=== PATIENT | male | born 1950 | race African-American/Black ===

== ENCOUNTER 2017-08-31 10:15 | Emergency (ER) | payer MEDICARE, SELFPAY ==
[2017-08-31 10:21] VITALS: BP 148/105; PULSE 84; RESP 18; TEMP 36.4; O2SAT 96; BMI 21.2
--- NOTE | 2017-08-31 10:32 | HMH.EDGENADL ---
ED Disposition Clinical Impression: Dehydration, Hyperthyroidism, Viral syndrome, Hyponatremia Disposition: Home, Self-Care Condition on Discharge: Good Additional Instructions: Please drink plenty of fluids. Please switch the Synthroid dose from 88 mcg to 50 mcg daily (Rx attached). Please follow-up with Dr. Martinez in the next [address] scan of the chest showing a right upper lung cavity, requiring repeat CT scan within 6 months (copy of less CT scan chest dated 09/16/16 given to you). If not better return to this emergency room promptly or follow up with Dr. Martinez at your earliest convenience. Prescriptions: Amoxicillin/Potassium Clav [Augmentin 875-125 Tablet] 1 tab PO Q12H #20 tab Levothyroxine Sodium [Synthroid 50mcg (0.05mg) tab] 50 mcg PO DAILY #30 tab Referrals: Dileep Martinez MD [Primary Care Provider] - Time of Disposition: 14:13 - Critical Care Critical Care Time: No Attestation: On , the high probability of a clinically significant, sudden or life threatening deterioration of the following system(s) required my full and direct attention, intervention and personal management. The time I documented below is in addition to time spent performing reported procedures but includes the following listed in this critical care notation. Medical Decision Making Vital Signs: 08/31/17 10:21 08/31/17 14:00 08/31/17 14:33 Temperature 97.6 F 98.0 F 98.1 F Temperature Source Oral Oral Oral Pulse Rate 72 Pulse Rate [Right Brachial] 84 72 Respiratory Rate 18 18 18 Blood Pressure 142/79 Blood Pressure [Right Arm] 148/105 132/85 Blood Pressure Mean [Right Arm] 119 100 Blood Pressure Source Automatic Cuff Blood Pressure Source [Right Arm] Automatic Cuff Automatic Cuff Blood Pressure Position Supine Blood Pressure Position [Right Arm] Sitting Sitting 02 Sat by Pulse Oximetry 96 97 Oxygen Delivery Method Room Air Room Air - Lab Data Lab results reviewed: Yes: I reviewed the patient's lab results. Lab Results 08/31/17 10:35: WBC 5.8, RBC 4.59 L, Hgb 14.0 L, Hct 41.1 L, MCV 89.7, MCH 30.6, MCHC 34.1, RDW 13.4, Plt Count 93 L, MPV 8.9, Neut % (Auto) 73.9, Lymph % (Auto) 18.7, Jennings % (Auto) 6.7, Eos % (Auto) 0.3, Baso % (Auto) 0.3, Neut # (Auto) 4.3, Lymph # (Auto) 1.1, Jennings # (Auto) 0.4, Eos # (Auto) 0.0, Baso # (Auto) 0.0 08/31/17 10:35: Sodium 127 L, Potassium 3.8, Chloride 95 L, Carbon Dioxide 25, Anion Gap 10.8, BUN 16, Creatinine 1.31 H, Estimated Creat Clear 59, Estimated GFR 54 L, Est GFR ( Amer) 66, Glucose 136 H, Calcium 7.9 L, Total Bilirubin 0.8, AST 18, ALT 14, Alkaline Phosphatase 80, Total Protein 7.7, Albumin 3.3 L, Globulin 4.4 H, Albumin/Globulin Ratio 0.8 L 08/31/17 10:35: Influenza Type A Ag Negative, Influenza Type B Ag Negative 08/31/17 10:35: Group A Strep Rapid Negative 08/31/17 10:35: TSH 0.15 L 08/31/17 11:40: Chlamy pneumoniae PCR Not detected, Adenovirus (PCR) Not detected, B.parapertussis DNA PCR Not detected, Coronavirus OC43 (PCR) Not detected, Coronavirus HKU1 (PCR) Not detected, Coronavirus 229E (PCR) Not detected, Coronavirus NL63 (PCR) Not detected, Human Metapneumovir PCR Not detected, Influenza A (H1) PCR Not detected, Influ A (H1N1/09) PCR Not detected, Influenza A (H3) PCR Not detected, Influenza Type A (PCR) Not detected, Influenza Type B (PCR) Not detected, M. pneumoniae (PCR) Not detected, Parainfluenza 1 (PCR) Not detected, Parainfluenza 2 (PCR) Not detected, Parainfluenza 3 (PCR) Not detected, Parainfluenza 4 (PCR) Not detected, RSV (PCR) Not detected, Entero/Rhino (PCR) Not detected 08/31/17 11:45: Urine Color Yellow, Urine Appearance Clear, Urine pH 6.5, Ur Specific [place] < 1.005 L, Urine Protein Negative, Urine Glucose (UA) Negative, Urine Ketones Negative, Urine Blood Trace, Urine Nitrate Negative, Urine Bilirubin Negative, Urine Urobilinogen 0.2, Ur Leukocyte Esterase Negative, Urine RBC Occasional, Urine WBC 3-5, Ur Squamous Epith Cells 3-5, Urine Bact
--- NOTE | 2017-08-31 10:37 | XR_ITS ---
XR chest 2V HISTORY: ITS.REASON: cough ORDERING PHYSICIAN: Troy Aguilar MD PATIENT AGE: 67 years COMPARISON: 2-17 FINDINGS: The cardiomediastinal silhouette and pulmonary vascularity are within normal limits. Right apical pleural thickening with fibrosis in with cavitation once again noted not significantly changed. No lobar consolidation or collapse.. No acute bony abnormalities. IMPRESSION: 1. No change right apical fibrosis with cavitation. 2. No acute findings
[2017-08-31 10:52] LABS: Strep Scrn Group A (Rapid) Negative (Negative)
[2017-08-31 10:54] LABS: Basophils % 0.3 % (0.1-2.0); Eosinophils % 0.3 % (0.1-12.0); Hematocrit 41.1 % (42.0-52.0); Lymphocytes # 1.1 K/mm3 (0.7-4.5); Lymphocytes % 18.7 K/mm3 (10-50); Mean Corpuscular HGB Conc 34.1 g/dL (31.8-35.4); Mean Corpuscular Hemoglobin 30.6 pg (27.0-31.2); Mean Corpuscular Volume 89.7 fl (80-94); Mean Platelet Volume 8.9 fl (7.4-10.4); Monocytes # 0.4 K/mm3 (0.1-1.0); Monocytes % 6.7 % (1.7-9.3); Neutrophils # 4.3 K/mm3 (1.8-7.8); Neutrophils % 73.9 % (37.0-80.0); Platelet Count 93 K/mm3 (142-424); Red Blood Count 4.59 M/mm3 (4.60-6.20); Red Cell Distribution Width 13.4 % (11.5-17.5); White Blood Count 5.8 K/mm3 (4.8-10.8)
[2017-08-31 11:07] LABS: Alanine Aminotransferase 14 U/L (12-78); Albumin Level 3.3 gm/dL (3.4-5.0); Albumin/Globulin Ratio 0.8 (1.1-1.8); Alkaline Phosphatase 80 U/L (46-116); Anion Gap 10.8 mEq/L (5-15); Aspartate Amino Transferase 18 U/L (15-37); Bilirubin,Total 0.8 mg/dL (0.2-1.0); Blood Urea Nitrogen 16 mg/dL (7-18); Calcium 7.9 mg/dL (8.5-10.1); Carbon Dioxide 25 mmol/L (21.0-32.0); Chloride 95 mmol/L (98-107); Creatinine Clearance Estimated 59 mL/min (0-300); Creatinine,Serum 1.31 mg/dL (0.70-1.30); Estimated Glomerular Filt Rate 54 ml/min (>60); GFR (African American) 66 ML/MIN (>60); Globulin 4.4 gm/dl (1.3-3.2); Glucose 136 mg/dL (74-106); Potassium 3.8 mmoL/L (3.5-5.1); Sodium 127 mmol/L (136-145); Total Protein,Serum 7.7 gm/dL (6.4-8.2)
[2017-08-31 11:09] LABS: Thyroid Stimulating Hormone 0.15 uIU/ml (0.358-3.740)
[2017-08-31 11:43] LABS: Adenovirus,PCR Not Detected (NotDetected); Bordetella Pertussis Not Detected (NotDetected); Chlamydophila Pneumoniae, PCR Not Detected (NotDetected); Coronavirus 229E Not Detected (NotDetected); Coronavirus NL63 Not Detected (NotDetected); Coronavirus OC43 Not Detected (NotDetected); Coronovirus HKU1,PCR Not Detected (NotDetected); Human Metapneumovirus Not Detected (NotDetected); Influenza A, PCR Not Detected (NotDetected); Influenza AH1, 2009 Not Detected (NotDetected); Influenza AH1, PCR Not Detected (NotDetected); Influenza AH3,PCR Not Detected (NotDetected); Influenza B, PCR Not Detected (NotDetected); Mycoplasma Pneumoniae, PCR Not Detected (NotDected); Parainfluenza 1, PCR Not Detected (NotDetected); Parainfluenza 2, PCR Not Detected (NotDetected); Parainfluenza 3, PCR Not Detected (NotDetected); Parainfluenza 4, PCR Not Detected (NotDetected); Respiratory Syncytial Virus Not Detected (NotDetected); Rhinovirus/Enterovirus Not Detected (NotDetected)
[2017-08-31 11:54] LABS: Microscopic, Urine URINE MICROSCOPIC (MICROSCOPIC)
[2017-08-31 12:01] LABS: Appearance,Urine Clear (Clear); Color,Urine Yellow (Yellow); PH,Urine 6.5 (5.0-8.5); Protein,Urine Negative (Negative); Specific Gravity, Urine < 1.005 (1.005-1.030)
[2017-08-31 12:02] LABS: Bilirubin,Urine Negative (Negative); Blood, Urine Trace (Negative); Glucose,Urine (UA) Negative (Negative); Ketones,Urine Negative (Negative); Leukocyte Esterase,Urine Negative (Negative); Nitrate,Urine Negative (Negative); Urobilinogen,Urine 0.2 EU/dl (0.2)
[2017-08-31 12:08] LABS: Bacteria,Urine Trace /lpf; RBC,Urine Occasional #/hpf (0-3)
[2017-08-31 14:00] VITALS: BP 132/85; PULSE 72; RESP 18; TEMP 36.7; O2SAT 97
[2017-08-31 14:33] VITALS: BP 142/79; PULSE 72; RESP 18; TEMP 36.7; O2SAT 99
== END 2017-08-31 14:33 | disposition home or self-care (01) ==
LOC: ER 10:47
PROVIDERS: Emergency Provider Emergency Medicine; Family Provider Internal Medicine Adolescent Medicine; PCP Internal Medicine Adolescent Medicine
DX: E87.1 Hypo-osmolality and hyponatremia (principal); E05.90 Thyrotoxicosis, unspecified without thyrotoxic crisis or storm; B34.9 Viral infection, unspecified; Z79.899 Other long term (current) drug therapy; I10 Essential (primary) hypertension
CPT/HCPCS: 71046; 80053; 81001; 84443; 85025; 87275; 87276; 87430; 87486; 87581; 87633; 87798; 96365; 96367; 99283

== ENCOUNTER → 2018-10-20 14:43 | Outpatient (CLI) | payer MEDICARE, SELFPAY ==
--- NOTE | 2018-10-20 | CA_ITS ---
PROCEDURE: 2-D M-mode and color Doppler study INDICATIONS FOR THE TEST: Chest pain COPD Heart Murmur Tobacco Smoking+ Palpitations Fatigue Syncope Edema Hypertension+Diabetes Mellitus Rheumatic Fever SOB FLORIAN Obesity Hyperlipidemia+ Family History HD Additional History hx of [place], CVA, known apical thrombus x 5 years PATIENT INFORMATION HEIGHT: 75 WEIGHT: 155 GENDER: Male B/P: 158/96 2-D/M-MODE INTERPRETATION: 2-D MEASUREMENTS OBSERVED VALUES IN CMS Right Ventricular Dimension (RVDd) 1.5 Interventricular Septum (Thickness)(IVsd) 0.7 Left Ventricular Internal Dimensions(LVIDd) 5.1 Left Ventricular Posterior Wall (Thickness)(LVPWd) 0.7 Aortic Root 3.1 Aortic Cusp Separation 2.0 Left Atrial Dimensions (LAD) 2.3 2D 1. Left atrium is mildly enlarged, left ventricle is mildly dilated, severely reduced left ventricular systolic function, visually estimated ejection fraction of 25%, there is marked hypo to akinesis involving the mid to distal septum, anterior, anteroapical, apex and inferoapical wall. There is large nonmobile apical thrombus seen. 2. The right atrium and right ventricle are normal size and contractility. 3. The aortic valve is thickened and calcified leaflet continue to display good mobility. 4. The mitral and tricuspid valve leaflets are minimally thickened. 5. The pulmonic valve is poorly visualized. 6. No significant pericardial effusion noted. DOPPLER INTERROGATION: Doppler interrogation of the aortic, mitral and tricuspid valve is presence of moderate mitral and mild tricuspid regurgitation, tricuspid regurgitation jet velocity is inadequate for calculation of the right ventricular systolic pressure, diastolic parameters are inconclusive. CONCLUSION: 1. Dilated left ventricle, severely reduced left ventricular systolic function, visually estimated to fraction of 20-25% with multiple segmental wall motion abnormality described above, there is large apical thrombus seen. 2. Moderate mitral and mild tricuspid regurgitation 3. No significant pericardial effusion noted.
== END ==
PROVIDERS: PCP Internal Medicine Adolescent Medicine; Visit Provider Internal Medicine Cardiovascular Disease
DX: I10 Essential (primary) hypertension (principal); I25.10 Atherosclerotic heart disease of native coronary artery without angina pectoris
CPT/HCPCS: 93306

== ENCOUNTER → 2018-11-15 10:15 | Outpatient (CLI) | payer MEDICARE, SELFPAY ==
[2018-11-15 10:43] LABS: Hematocrit 42.5 % (42.0-52.0); Hemoglobin 14.1 g/dL (14.1-18.0)
== END ==
PROVIDERS: Visit Provider Surgery
DX: A04.8 Other specified bacterial intestinal infections (principal)
CPT/HCPCS: 36415; 85014; 85018

== ENCOUNTER → 2019-01-30 13:52 | Outpatient (CLI) | payer MEDICARE, SELFPAY ==
[2019-02-02 17:10] LABS: H. pylori Stool Ag, EIA Negative (Negative)
== END ==
PROVIDERS: Visit Provider Surgery
DX: A04.8 Other specified bacterial intestinal infections (principal)
CPT/HCPCS: 87338

== ENCOUNTER → 2020-05-05 07:55 | Outpatient (CLI) | payer MEDICARE, SELFPAY ==
--- NOTE | 2020-05-05 08:18 | CT_ITS ---
PROCEDURE: CT LUNG SCREENING CLINICAL INDICATION: CURRENT SMOKER Year smoking history, asymptomatic for lung cancer COMPARISON: CT CHWO CT CHEST W/O CONTRAST from 02/16/2013 CT CTAC CTA-CHEST from 09/16/2016 TECHNIQUE: The exam was performed on a GE Light Speed [address] scanner using 2.90 mGy CTDI. A low dose helical CT CHEST was performed on a multi-detector scanner. All CT scans at the facility use one or more dose reduction, viz: automated exposure control, ma/kV adjustment per patient size (including targeted exams where dose is matched to indication, i.e. head), or iterative reconstruction technique. The LDCT was performed in a facility that meets the criteria for the screening program. Data regarding this exam was submitted to ACR which is an approved registry. The order for this exam indicates that it came as a result of a lung cancer screening counseling shard decision-making visit that included all the elements required of such a visit including smoking cessation. The radiologist interpreting this exam meets the CMS criteria for the LDCT lung cancer screening program. The exam is reported using the Lung-RADS classification scale and reported to the ACR registry. NOTE: This study was performed for the specific purposes of lung cancer screening and is not an alternative to diagnostic chest CT. RADIATION DOSE: CTDI vol(CT dose Index-volume) = 2.90mG DLP (Dose Length Product) = 128.20 mGcm FINDINGS: Artifact is present from a cardiac pacemaker implanted in the left chest. There is diffuse centrilobular and panlobular emphysematous changes with pulmonary fibrotic changes. There is an apical cavity on the right with pleural thickening. The cavity is decreased in size compared to 02/16/2013 measuring 3 cm in with previously measuring 6 cm in with. There is bronchiectasis in the right apex. Scattered nodular opacities are present in the right apex as well which could be due to scarring. These are parenchymal and subpleural. Faint nodular opacities are present in the right upper lobe which are nonspecific measuring up to 4 mm. Many of these were present on the previous exam somewhat difficult to evaluate due to the underlying scarring. 3 mm nodule right lower lobe medially unchanged. 4 mm right middle lobe nodule unchanged. There is some irregularity in the anterior aspect of the right upper lobe medially which is felt to be due to scarring. There is some scarring in the left lower lobe as well. There are few small nodules in the left upper lobe laterally the largest at approximately 4 mm. These are probably unchanged considering difference in technique. OTHER FINDINGS: Coronary artery calcifications. Pericardial thickening. IMPRESSION: Lung-RADS Category lung rads category 3 probably benign. Recommend six-month diagnostic CT without and with contrast. Cyst severe centrilobular emphysema with right apical cavity and pleural parenchymal thickening with bronchiectasis. Follow-up: [address] Chest without and with contrast. Dictated by: Lalit Momin MD 05/19/2020 09:56 Lalit Momin MD in [place] 05/19/2020 09:56
== END ==
PROVIDERS: PCP Internal Medicine Adolescent Medicine; Visit Provider Internal Medicine Adolescent Medicine
DX: Z87.891 Personal history of nicotine dependence (principal); Z12.2 Encounter for screening for malignant neoplasm of respiratory organs

== ENCOUNTER → 2020-05-08 10:47 | Outpatient (CLI) | payer MEDICARE, SELFPAY ==
--- NOTE | 2020-05-08 10:51 | CA_ITS ---
APPROVED REPORT EXAM: Comprehensive 2D, Doppler, and color-flow Echocardiogram Bar Porter: Alexandra Knapp CRT Ht: 6 ft 3 in Wt: 155lbs BSA: 1.97 BP: 150/90 mmHg Indications: Hyperlipidemia, Hypertension/HDD, old NV, CVA, smoker, known apical thrombus x 6 yrs Left Ventricle Left atrium is mildly enlarged, left ventricle is mildly dilated, mild concentric left ventricular hypertrophy, visually estimated ejection fraction 25%, there is marked hypokinesis involving mid to distal septum, anterior, anterior apical and apical wall. Grade 1 diastolic dysfunction seen without tissue Doppler evidence of raise left atrial pressure. Right Ventricle Right atrium and right ventricle are normal size and contractility, there is an AICD lead seen in the right ventricle. Aortic Valve Aortic valve is minimally thickened and fibrosed. There is no aortic stenosis or aortic insufficiency. Mitral Valve Mitral valve leaflets are minimally thickened, there is mild mitral regurgitation. Tricuspid Valve Tricuspid valve is grossly normal, there is mild tricuspid regurgitation, tricuspid regurgitation jet velocity is inadequate for calculation of the right ventricular systolic pressure. Pulmonic Valve Pulmonic valve is poorly visualized. Great Vessels Aortic root is normal size. Pericardium No significant pericardial effusion noted. Conclusion 1. Mildly enlarged left atrium, mildly dilated left ventricle, visually estimated ejection fraction 25 to 30% with multiple segmental wall motion abnormality described above, grade 1 diastolic dysfunction. Without tissue Doppler evidence of raise left atrial pressure. 2. Mild mitral and tricuspid regurgitation. 3. No significant pericardial effusion noted. Electronically signed by : Erick Mustafa, 05/08/2020 14:07:52
== END ==
PROVIDERS: PCP Internal Medicine Adolescent Medicine; Visit Provider Internal Medicine Cardiovascular Disease
DX: I25.10 Atherosclerotic heart disease of native coronary artery without angina pectoris (principal); I48.91 Unspecified atrial fibrillation; I50.22 Chronic systolic (congestive) heart failure; I10 Essential (primary) hypertension
CPT/HCPCS: 93306

== ENCOUNTER 2020-08-23 09:08 | Emergency (ER) | payer MEDICARE, SELFPAY ==
[2020-08-23 09:56] VITALS: BP 167/91; PULSE 81; RESP 19; TEMP 36.6; O2SAT 98; BMI 20.7
--- NOTE | 2020-08-23 10:03 | HMH.EDUTC ---
[facility] [place] Clinical Impression: Exposure to COVID-19 virus Disposition: Home, Self-Care Condition on Discharge: Good Instructions: DI for COVID-19 (Suspected or Confirmed ), COVID-19: Testing and Tracing, Preventing the Spread of Coronavirus Discharge Instructions Additional Instructions: *Monitor Temp, Over the counter Motrin or Tylenol as directed/as needed Tylenol every 4 hours and Motrin every 6 hours (as long as your family doctor has told you that you can take it) for fever or pain. and straight to ER if unable to lower temp less than 101.0 after medication given You were tested for today for COVID19 your test result should be back in the next 24-48 hours, you may call to the [facility] to see if your test results are back in the next 48 hours [phone] [facility] hours are 9am-9pm You was given a handout with instructions for Self Quarantine and Self isolation for while you wait on test results and what to do if they are positive If you are positive the Health Dept will be contacting you also Referrals: Dileep Martinez MD [Primary Care Provider] - As needed Time of Disposition: 10:10 Medical Decision Making - Jacinto Inquiry Pt receiving controlled substance: No Jacinto was queried for this patient: No Vital Signs: 08/23/20 09:56 Temperature 97.8 F Temperature Source Oral Pulse Rate [Right Brachial] 81 Respiratory Rate 19 Blood Pressure [Right Arm] 167/91 H Blood Pressure Mean [Right Arm] 116 Blood Pressure Source [Right Arm] Automatic Cuff Blood Pressure Position [Right Arm] Sitting 02 Sat by Pulse Oximetry 98 Oxygen Delivery Method Room Air Orders (Tests/Meds): ORDERS Category Date Time Status Covid-19 Nasal PCR ([facility]) Routine Lab 08/23/20 09:21 Received [facility] [place] HPI - General Stated complaint: covid test Time Seen by Provider: 08/23/20 10:03 Mode of Arrival: Ambulatory Source of Information: Patient Limitations: No Limitations Description of Symptoms (Recalled from Triage Doc. by RN): COVID TEST D/T EXPOSURE; DENIES SYMPTOMS HEENT Symptoms (Recalled from RN notes): No Resp Symptoms (Recalled from RN notes): No Skin Symptoms (Recalled from RN notes): No MS Symptoms (Recalled from RN notes): No Functional Status (Recalled from RN notes): WNL - History of Present Illness Provider Complaint: Patient states that he was recently around someone that was positive for COVID state that he is not having any symptoms but wanted to get tested - Related Data Home Medications Medication Instructions Recorded Confirmed Coreg 12.5mg Tablet 1 tab PO DAILY 08/31/17 04/11/19 Nitroglycerin [Nitroglycerin 0 gm SL NEEDED PRN 08/31/17 04/11/19 0.4mg/Dose Reyno 4.9gm] Omeprazole [Omeprazole 20mg 20 mg PO BID 08/31/17 04/11/19 Capsule] Pravastatin Sodium [Pravachol] 40 mg PO BID 08/31/17 04/11/19 lisinopriL [Lisinopril 5mg Tablet] 5 mg PO DAILY 08/31/17 04/11/19 raNITIdine HCl [Zantac] 150 mg PO BID 08/31/17 04/11/19 Levothyroxine Sodium [Synthroid 50 mcg PO DAILY 08/15/18 04/11/19 50mcg (0.05mg) tab] apixaban 5 mg tablet 5 mg PO BID 04/11/19 04/11/19 Allergies Allergy/AdvReac Type Severity Reaction Status Date / Time No Known Allergies Allergy Verified 04/11/19 09:28 - Worker's Comp Is this a Worker's Comp case?: No [facility] History - Hepatitis A Screen Drug use history?: No High risk sexual behaviors?: No History of sexually transmitted infection?: No Currently employed?: No Childcare worker?: No Do you have indoor plumbing?: Yes Do you have electricity?: Yes Attestation statement:: This patient has been screened for Hepatitis A risk factors. I have reviewed the patient's past medical history: Yes Medical History: Reports:: Coronary Artery Disease, Cerebrovascular Accident, Gastroesophageal Reflux Disease(GERD), Hyperlipidemia, Hypertension, Myocardial Infarction Denies:: Diabetes Mellitus Type 1, Diabetes Mellitus Type 2, Internal Pacemaker, Lung Disease, Seizures
[2020-08-23 10:18] VITALS: BP 167/91; PULSE 81; RESP 19; TEMP 36.6; O2SAT 98
--- NOTE | 2020-08-23 15:32 | PC.NURSE ---
PT NOTIFIED OF POSITIVE COVID RESULT
== END 2020-08-23 10:20 | disposition home or self-care (01) ==
PROVIDERS: Emergency Provider Nurse Practitioner; PCP Internal Medicine Adolescent Medicine
DX: U07.1 COVID-19 (principal); E03.9 Hypothyroidism, unspecified; E78.5 Hyperlipidemia, unspecified; I10 Essential (primary) hypertension; I25.10 Atherosclerotic heart disease of native coronary artery without angina pectoris; I25.2 Old myocardial infarction; K21.9 Gastro-esophageal reflux disease without esophagitis
CPT/HCPCS: G0463; 99202; U0003

== ENCOUNTER → 2020-09-10 10:30 | Outpatient (CLI) | payer MEDICARE, SELFPAY ==
[2020-09-10 10:53] LABS: Basophils % 0.8 % (0.1-2.0); Eosinophils # 0.1 K/mm3 (0.0-0.4); Eosinophils % 1.5 % (0.1-12.0); Hematocrit 47.4 % (42.0-52.0); Hemoglobin 15.2 g/dL (14.1-18.0); Lymphocytes # 0.9 K/mm3 (0.7-4.5); Lymphocytes % 23.8 % (10-50); Mean Corpuscular HGB Conc 32.1 g/dL (31.8-35.4); Mean Corpuscular Hemoglobin 31.1 pg (27.0-31.2); Mean Corpuscular Volume 96.9 fl (80-94); Mean Platelet Volume 8.4 fl (7.4-10.4); Monocytes # 0.3 K/mm3 (0.1-1.0); Monocytes % 7.2 % (1.7-9.3); Neutrophils # 2.5 K/mm3 (1.8-7.8); Neutrophils % 66.6 % (37.0-80.0); Platelet Count 147 K/mm3 (142-424); Red Blood Count 4.89 M/mm3 (4.60-6.20); Red Cell Distribution Width 13.8 % (11.5-17.5); White Blood Count 3.7 K/mm3 (4.8-10.8)
[2020-09-10 11:19] LABS: Alanine Aminotransferase 15 U/L (12-78); Albumin Level 4.7 g/dl (3.5-5.0); Albumin/Globulin Ratio 1.1 (1.1-1.8); Alkaline Phosphatase 82 U/L (38-126); Anion Gap 14.6 mEq/L (5-15); Aspartate Amino Transferase 20 U/L (17-59); Bilirubin,Total 0.7 mg/dl (0.2-1.3); Blood Urea Nitrogen 16 mg/dl (9-20); Calcium 9.8 mg/dl (8.4-10.2); Carbon Dioxide 27 mmol/L (22.0-30.0); Chloride 104 mmol/L (98-107); Cholesterol 122 mg/dl (140-200); Estimated Glomerular Filt Rate 60 ml/min (>60); GFR (African American) 72 ML/MIN (>60); Globulin 4.1 g/dL (1.3-3.2); Glucose 103 mg/dl (74-100); HDL Cholesterol 41 mg/dl (40-60); Potassium 4.6 mmoL/L (3.5-5.1); Sodium 141 mmol/L (136-145); Total Protein,Serum 8.8 g/dl (6.3-8.2); Triglycerides 80 mg/dl (30-150); VLDL Cholesterol 16 mg/dL (0-40)
[2020-09-10 11:30] LABS: Direct LDL Cholesterol 43.55 mg/dL (100-129)
[2020-09-10 11:47] LABS: Thyroid Stimulating Hormone 0.82 uIU/mL (0.465-4.68)
== END ==
PROVIDERS: Visit Provider Internal Medicine Adolescent Medicine
DX: I25.5 Ischemic cardiomyopathy (principal); Z79.899 Other long term (current) drug therapy
CPT/HCPCS: 36415; 80053; 80061; 84443; 85025

== ENCOUNTER → 2020-12-18 12:54 | Outpatient (CLI) | payer MEDICARE, SELFPAY ==
--- NOTE | 2020-12-18 13:10 | CT_ITS ---
PROCEDURE: CT CHEST WO/W CON CLINCAL INDICATION: LUNG NODULE SEEN ON IMAGING STUDY COMPARISON: CT CT LUNG SCREENING from 05/05/2020 TECHNIQUE: IV Contrast: 75ml Isovue 370 Axial images obtained with sagittal and coronal reformats. All CT scans at the facility use one or more dose reduction, viz: automated exposure control, ma/kV adjustment per patient size (including targeted exams where dose is matched to indication, i.e. head), or iterative reconstruction technique. FINDINGS: HEART AND MEDIASTINAL STRUCTURES: No mediastinal or hilar mass or adenopathy. No evidence of aortic aneurysm, dissection, or central pulmonary embolus. There is minimal thickening of the pericardium anteriorly and inferiorly not significantly changed. Artifact is present from cardiac pacemaker device. The right lobe of the thyroid gland is slightly prominent. The left lobe is not readily identified. Has the patient had a prior left thyroidectomy? LUNGS AND PLEURAL SPACES: There are severe centrilobular and paraseptal emphysematous changes with prominent complex right apical pleural thickening with multiple cavities which do not appear significantly changed. Right upper lobe bronchiectasis is present. Numerous small pulmonary nodules are also present in the right upper lobe and do not appear significantly changed. Small cavity is present in the right upper lobe anteriorly with some surrounding fibrotic changes which appear stable there is some scarring in the left lower lobe. There are scattered calcified granulomas. No effusions. BONY STRUCTURES: No acute bony abnormalities apparent. UPPER ABDOMEN: Unremarkable. ADDITIONAL FINDINGS: No other significant abnormalities. IMPRESSION: Overall stable CT appearance of the chest. No change in the right apical pleural thickening with multiple small cavities, right upper lobe bronchiectasis with bronchial thickening, scattered areas of scarring and small right upper lobe pulmonary nodules along with numerous granulomas. Dictated by: Lalit Momin MD 12/19/2020 09:17 Lalit Momin MD in [place] 12/19/2020 09:17
[2020-12-18 13:47] LABS: Blood Urea Nitrogen 16 mg/dl (9-20); Estimated Glomerular Filt Rate 46 ml/min (>60); GFR (African American) 56 ML/MIN (>60)
== END ==
PROVIDERS: PCP Internal Medicine Adolescent Medicine; Visit Provider Internal Medicine Adolescent Medicine
DX: R91.1 Solitary pulmonary nodule (principal)
CPT/HCPCS: 36415; 71270; 82565; 84520; Q9967

== ENCOUNTER → 2021-08-13 14:35 | Outpatient (CLI) | payer MEDICARE, SELFPAY ==
[2021-08-13 15:31] LABS: Eosinophils # 0.2 K/mm3 (0.0-0.4); Eosinophils % 4.3 % (0.1-12.0); Hematocrit 45.5 % (42.0-52.0); Hemoglobin 14.8 g/dL (14.1-18.0); Lymphocytes # 1.4 K/mm3 (0.7-4.5); Lymphocytes % 35.8 % (10-50); Mean Corpuscular HGB Conc 32.5 g/dL (31.8-35.4); Mean Corpuscular Hemoglobin 31.9 pg (27.0-31.2); Mean Corpuscular Volume 98.3 fl (80-94); Mean Platelet Volume 8.9 fl (7.4-10.4); Monocytes # 0.3 K/mm3 (0.1-1.0); Neutrophils # 1.9 K/mm3 (1.8-7.8); Neutrophils % 49.9 % (37.0-80.0); Platelet Count 159 K/mm3 (142-424); Red Blood Count 4.63 M/mm3 (4.60-6.20); Red Cell Distribution Width 14.3 % (11.5-17.5); White Blood Count 3.8 K/mm3 (4.8-10.8)
[2021-08-13 16:02] LABS: Alanine Aminotransferase 10 U/L (12-78); Albumin Level 4.1 g/dl (3.5-5.0); Albumin/Globulin Ratio 1.2 (1.1-1.8); Alkaline Phosphatase 77 U/L (38-126); Anion Gap 13.8 mEq/L (5-15); Aspartate Amino Transferase 17 U/L (17-59); Bilirubin,Total 0.9 mg/dl (0.2-1.3); Blood Urea Nitrogen 20 mg/dl (9-20); Calcium 9.2 mg/dl (8.4-10.2); Carbon Dioxide 27 mmol/L (22.0-30.0); Chloride 103 mmol/L (98-107); Chol/HDL Ratio 2.9 (1-3.5); Cholesterol 110 mg/dl (140-200); Estimated Glomerular Filt Rate 50 ml/min (>60); GFR (African American) 60 ML/MIN (>60); Globulin 3.4 g/dL (1.3-3.2); Glucose 96 mg/dl (74-100); HDL Cholesterol 38 mg/dl (40-60); Magnesium 1.7 mg/dl (1.6-2.3); Potassium 4.8 mmoL/L (3.5-5.1); Sodium 139 mmol/L (136-145); Total Protein,Serum 7.5 g/dl (6.3-8.2); Triglycerides 136 mg/dl (30-150); VLDL Cholesterol 27 mg/dL (0-40)
[2021-08-13 16:13] LABS: Direct LDL Cholesterol 49.25 mg/dL (100-129)
[2021-08-13 16:34] LABS: Thyroid Stimulating Hormone 0.85 uIU/mL (0.465-4.68)
== END ==
PROVIDERS: Visit Provider Internal Medicine Adolescent Medicine
DX: I25.5 Ischemic cardiomyopathy (principal); E78.5 Hyperlipidemia, unspecified; E03.9 Hypothyroidism, unspecified
CPT/HCPCS: 36415; 80053; 80061; 83735; 84443; 85025

== ENCOUNTER → 2022-01-04 12:42 | Outpatient (CLI) | payer MEDICARE, SELFPAY ==
--- NOTE | 2022-01-04 12:46 | CT_ITS ---
FINAL REPORT TECHNIQUE: Thin section axial images were obtained from the lung apices through the upper abdomen without contrast. This study was performed with techniques to keep radiation doses as low as reasonably achievable (ALARA). Individualized dose reduction techniques using automated exposure control or adjustment of mA and/or kV according to the patient's size were employed. CLINICAL HISTORY: Right PULMONARY NODULE COMPARISON: 12/18/2020 FINDINGS: There is a stable, enlarged right thyroid. There is no mediastinal, hilar, or axillary lymphadenopathy. There is no pleural or pericardial effusion. There is severe emphysema which is stable. Again seen, is right apical pleural thickening with bronchiectasis and retraction of the right sonny superiorly. Small subcentimeter right upper lobe nodules are unchanged. There are scattered tiny right lower lobe pulmonary nodules which are also stable. There is a chronic appearing, small right apical pneumothorax which is unchanged. This is best seen on the coronal images. Limited, unenhanced evaluation of the upper abdomen is without acute abnormality. There is no acute osseous abnormality. IMPRESSION: Stable, right upper lung findings with bronchiectasis and a chronic small right apical pneumothorax, possibly a sequela of prior infection. Emphysema. Stable subcentimeter right pulmonary nodules. Reviewed, Interpreted and Dictated by Tiffanie Adrian MD Transcribed by Bharti Corley Authenticated by Tiffanie Adrian MD on 01/04/2022 02:24:36 PM [facility]
== END ==
PROVIDERS: PCP Internal Medicine Adolescent Medicine; Visit Provider Internal Medicine Adolescent Medicine
DX: R91.1 Solitary pulmonary nodule (principal)
CPT/HCPCS: 71250

== ENCOUNTER → 2022-03-02 09:23 | Outpatient (CLI) | payer MEDICARE, SELFPAY | PROVIDERS: PCP Internal Medicine Adolescent Medicine; Visit Provider Internal Medicine Gastroenterology | DX: Z01.812 Encounter for preprocedural laboratory examination (principal); Z20.822 Contact with and (suspected) exposure to COVID-19; Z12.11 Encounter for screening for malignant neoplasm of colon | CPT/HCPCS: C9803; U0003; U0005 ==

== ENCOUNTER 2022-03-04 07:55 | Day surgery (SDC) | payer MEDICARE, SELFPAY ==
[2022-03-01 14:10] VITALS: BMI 21.0
[2022-03-04 08:15] VITALS: BP 190/117; PULSE 83; RESP 18; TEMP 36.3; O2SAT 92
[2022-03-04 08:55] VITALS: O2SAT 92
--- NOTE | 2022-03-04 09:09 | P.PN_ITS ---
[facility] Anesthesia Checklist - Patient Identification Patient Identification: Arm Band - Structural Data Admitted From: Home Planned Operative Procedure/s: colonoscopy Consent for Planned Operative Procedure(s) Verified: Yes Verified Documents: Surgical Consent, History and Physical - NPO Status Verified Time NPO: 00:00 - Additional verifications Anesthesia Reactions: No - Airway Assessment C-Spine Mobility Assessed: Yes (mp2) TMJ Mobility Assessed: Yes Dentition: Poor Dentition - Neurological Assessment Level of Consciousness: Awake, Alert - Anesthesia Plan Anesthesia Risk discussed: Yes Anesthesia Plan: Verified ASA Class: III Anesthesia Type: MAC [facility] History I have reviewed the patient's past medical history: Yes Medical History: Reports:: Coronary Artery Disease, Cerebrovascular Accident, Gastroesophageal Reflux Disease(GERD), Hyperlipidemia, Hypertension, Internal Pacemaker, Myocardial Infarction Denies:: Cancer, Diabetes Mellitus Type 1, Diabetes Mellitus Type 2, Lung Disease, MRSA, Seizures *Have you ever received a pneumonia vaccine?: Yes *Have you received a flu vaccine this season?: Yes Other Medical History: Reports: Hypothyroidism Anesthesia experience/problems:: nac Laterality Cases: Right: Arthroscopy Knee Other Surgeries: Yes: Colonoscopy, EGD, Pacemaker, Other Amputation: No Fractures: No - *Social History Last grade of school completed: Advanced degree Smoking Status: Current every day smoker Tobacco Type: cigarettes # Packs/Day (cigarettes): 1 Alcohol Intake: former Substance Use Type: denies use *Occupational Status:: retired Housing: house Household Members: none *Travel in the last 8 weeks: None Family Hx:: No significant family history
[2022-03-04 09:18] VITALS: BP 88/53; PULSE 80; RESP 16; TEMP 36.4; O2SAT 100
--- NOTE | 2022-03-04 09:19 | HMH.SCOPE ---
- Procedure: Date: 03/04/22 Patient Date of :: 1950 Procedure Performed:: Screening colonoscopy Indications:: History of polyps Performing Provider:: Harrison Jenkins MD Referring Provider:: Dileep Martinez Sedation:: Propofol Procedure:: After placing the patient in the left lateral decubitus position, the colonoscopy was gently inserted into the rectum and under direct visualization advanced to the cecum which was identified by transillumination in the right lower quadrant, identification of the ileocecal valve, appendiceal orifice, and cecal strap. Color, texture, mucosa, and anatomy of the colon were carefully examined with the scope. Findings:: Anal canal: normal Rectum: normal Sigmoid colon: normal without polyps or inflammatory changes. Few diverticulosis noted. Descending colon: normal without polyps or inflammatory changes Splenic flexure: normal Transverse colon: normal without polyps or inflammatory changes Hepatic flexure: normal Ascending colon: normal without polyps or inflammatory changes Cecum: normal Terminal ileum: not visualized Impression: Normal colonoscopy Few sigmoid diverticulosis Recommendations:: Repeat examination in about 5-10 years Complications:: None Estimated blood obtained (mL): 0
[2022-03-04 09:28] VITALS: BP 85/44; PULSE 71; RESP 16; O2SAT 95
[2022-03-04 09:38] VITALS: BP 101/61; PULSE 70; RESP 16; O2SAT 98
[2022-03-04 09:48] VITALS: BP 116/59; PULSE 73; RESP 16; O2SAT 98
== END 2022-03-04 09:48 | disposition home or self-care (01) ==
LOC: OUTP 07:58
PROVIDERS: PCP Internal Medicine Adolescent Medicine; Visit Provider Internal Medicine Gastroenterology
PROC: 0DJD8ZZ Inspection of Lower Intestinal Tract, Via Natural or Artificial Opening Endoscopic (ICD-10-PCS; CPT 45378; principal; 2022-03-04 09:00)
DX: R19.5 Other fecal abnormalities (principal); Z86.010 Personal history of colon polyps; I25.10 Atherosclerotic heart disease of native coronary artery without angina pectoris; K21.9 Gastro-esophageal reflux disease without esophagitis; I10 Essential (primary) hypertension; I25.2 Old myocardial infarction; Z72.0 Tobacco use; Z79.899 Other long term (current) drug therapy
CPT/HCPCS: 45378

== ENCOUNTER → 2023-01-21 10:28 | Outpatient (CLI) | payer MEDICARE, SELFPAY ==
--- NOTE | 2023-01-21 10:36 | CT_ITS ---
FINAL REPORT TECHNIQUE: Axial CT without IV contrast administration using low dose protocol CLINICAL HISTORY: HISTORY OF NICOTINE USE current smoker 1ppd x46 years COMPARISON: 12/18/2020 and 01/04/2022 FINDINGS: CT CHEST LOW DOSE SCREENING DOSE: CTDIvol: 2.90 mGy, DLP: 125.85 mGy*cm There is chronic right apical scarring with bronchiectasis, similar from prior exams. There is severe emphysema. No acute lung disease is present . There are multiple small nodules in the right lung apex near the area of scarring and to a lesser extent the left upper lobe, likely granulomas. These all measure 5 mm or less, unchanged from previous. No pleural or pericardial effusion is seen . No adenopathy or mass lesion is present . IMPRESSION: No evidence of primary neoplasm. Extensive chronic changes in the right lung apex, likely sequela of prior TB or fungal disease. Stable 5 mm left upper lobe nodules considered granulomas. LUNG RADS CATEGORY 2 RECOMMENDATION: 12 month LDCT follow up Reviewed, Interpreted and Dictated by Francisco Amanda MD Transcribed by Sandra Locke Authenticated and [facility]
== END ==
PROVIDERS: PCP Internal Medicine Adolescent Medicine; Visit Provider Internal Medicine Adolescent Medicine
DX: Z87.891 Personal history of nicotine dependence (principal); Z12.2 Encounter for screening for malignant neoplasm of respiratory organs
CPT/HCPCS: 71271

== ENCOUNTER 2023-06-14 11:32 | Day surgery (SDC) | payer MEDICARE, SELFPAY ==
[2023-06-14 11:50] VITALS: BP 147/53; PULSE 72; RESP 18; TEMP 36.1; O2SAT 99
--- NOTE | 2023-06-14 12:00 | HMH.SCOPE ---
Procedure: Date: 06/14/23 Patient Date of :: 1950 Procedure Performed:: Esophagogastroduodenoscopy with biopsy Indications:: Gastroesophageal reflux Intermittent dysphagia Performing Provider:: Raman Crews MD Referring Provider:: . Sedation:: Monitored anesthesia care Procedure:: After informed consent was obtained the patient was taken to the endoscopy suite. Sedation ensued after the patient was transferred to the left lateral decubitus position. Pulse, blood pressure, and oxygen saturation were monitored throughout the procedure. The endoscope was advanced beyond the duodenal bulb. Retroflexion within the gastric lumen was accomplished. The gastroscope was carefully removed and the patient was transferred to recovery in stable condition. Please see findings and specimens below for detail. Findings:: Gastroesophageal junction 45 cm Patulous esophagus and small bowel Punctate scattered gastritis with tiny linear ulcerations Specimens:: Antral biopsy Recommendations:: Protonix prescribed Follow-up pathology Barium swallow and possible UGI/SBFT secondary to combined history of intermittent dysphagia and reflux without evidence of definitive stricture Complications:: No immediate Estimated blood obtained (mL): 1 Colonoscopy Component Colonoscopy Component Was a colonoscopy performed during today's procedure?: No
[2023-06-14 12:04] VITALS: O2SAT 98
[2023-06-14 12:23] VITALS: BP 90/51; PULSE 68; RESP 18; TEMP 36.8; O2SAT 98
[2023-06-14 12:30] VITALS: BP 99/37; PULSE 65; RESP 19; O2SAT 95
--- NOTE | 2023-06-14 12:36 | P.PNANES_ITS ---
[facility] Disclaimer: The information contained in this section may have been updated after the patient was seen, as this information can be updated by other users. Medical History Acid reflux COPD (chronic obstructive pulmonary disease) History of myocardial infarction History of stroke Hypertension Surgical History History of permanent cardiac pacemaker placement Family History Other No significant family history Social History Smoking Status: Current every day smoker tobacco type: cigarettes packs per day: 1 alcohol intake: former substance use type: denies use current occupational status: unemployed and retired Travel in the last 8 weeks: None household members: none housing: house current occupational exposures/hazards: No caffeine: Yes [facility] Anesthesia Checklist Patient Identification Patient Identification: Arm Band and Family Structural Data Admitted From: Home Planned Operative Procedure/s: EGD Consent for Planned Operative Procedure(s) Verified: Yes Verified Documents: Surgical Consent and History and Physical NPO Status Verified Time NPO: 00:00 Additional verifications Anesthesia Reactions: No Hx Blood Transfusions: No Blood Transfusion Reaction: No Cephalosporin Allergy: No Previous Colonoscopy: Yes Airway Assessment Mallampati Score:: Class II C-Spine Mobility Assessed: Yes TMJ Mobility Assessed: Yes Dentition: Partials Neurological Assessment Level of Consciousness: Awake, Alert, Appropriate and Follows Commands Hx Seizures: No Numbness or tingling in extremities: No Anesthesia Plan Anesthesia Risk discussed: Yes ASA Class: III Anesthesia Type: MAC Preoperative Comments Pre-Operative Comments: COPD. HTN. PACEMAKER. HISTORY OF [place] 2007.
[2023-06-14 12:40] VITALS: BP 100/58; PULSE 68; RESP 18; O2SAT 94
[2023-06-14 12:43] VITALS: BP 114/49; PULSE 62; RESP 18; TEMP 36.8; O2SAT 95
== END 2023-06-14 12:43 | disposition home or self-care (01) ==
PROVIDERS: PCP Internal Medicine Adolescent Medicine; Visit Provider Surgery
PROC: 0DJ08ZZ Inspection of Upper Intestinal Tract, Via Natural or Artificial Opening Endoscopic (ICD-10-PCS; CPT 43235; principal; 2023-06-14 14:00)
DX: K21.9 Gastro-esophageal reflux disease without esophagitis (principal); R13.10 Dysphagia, unspecified; K29.50 Unspecified chronic gastritis without bleeding
CPT/HCPCS: 43239; 88305

== ENCOUNTER 2023-07-01 05:32 | Inpatient (IN) | payer MEDICARE, SELFPAY ==
[2023-07-01] VITALS (15 sets, daily range): BP systolic 92–125; BP diastolic 47–69; PULSE 62–99; RESP 14–23; TEMP 36.4–37.1; O2SAT 86–98; BMI 19.5; BMI 19.6
--- NOTE | 2023-07-01 05:33 | XR_ITS ---
PROCEDURE INFORMATION: Exam: XR Chest Exam date and time: 07/01/2023 5:52 AM Age: 73 years old Clinical indication: Cough and shortness of breath; Prior surgery; Surgery date: 6+ months; Surgery type: Pacemaker 7-8 years; Additional info: Cough, SOA TECHNIQUE: Imaging protocol: Radiologic exam of the chest. Views: 1 view. COMPARISON: CT LUNG SCREENING 01/21/2023 10:48 AM FINDINGS: Tubes, catheters and devices: The left chest wall pacemaker lead is noted in the right ventricle. Lungs: The lungs are hyperinflated. Mild asymmetric edema is seen on the left. Pleural spaces: Unremarkable. No pleural effusion. No pneumothorax. Heart/Mediastinum: Unremarkable. No cardiomegaly. Vasculature: Mild atherosclerotic calcifications affect the aorta and its branches. Bones/joints: Unremarkable. IMPRESSION: 1. The lungs are hyperinflated. Mild asymmetric edema is seen on the left. 2. The left chest wall pacemaker lead is noted in the right ventricle.
[2023-07-01 05:51] LABS: Coronavirus 19, PCR Not Detected (NotDetected); Influenza A, PCR Not Detected (NotDetected); Influenza B, PCR Not Detected (NotDetected)
--- NOTE | 2023-07-01 05:51 | ECG_ITS ---
APPROVED REPORT Exam: Resting ECG HR:94 bpm ECG Measurements Heart Rate 94 AXES LA 196 P 88 QRSd 112 QRS -65 QT 364 T 86 QTc 416 Conclusion SINUS RHYTHM WITH FREQUENT VENTRICULAR PREMATURE COMPLEXES POSSIBLE RIGHT ATRIAL ENLARGEMENT [0.25mV P-WAVE] Left atrial abnormality LEFT AXIS DEVIATION [QRS AXIS < -30] ANTEROSEPTAL Changes UNCONFIRMED REPORT Electronically signed by : Dileep Martinez MD 07/01/2023 16:08:17
[2023-07-01 05:55] LABS: Eosinophils % 0.1 % (0.1-12.0); Hematocrit 38.8 % (42.0-52.0); Hemoglobin 13.7 g/dL (14.1-18.0); Lymphocytes # 0.4 K/mm3 (0.7-4.5); Lymphocytes % 3.6 % (10-50); Mean Corpuscular HGB Conc 35.3 g/dL (31.8-35.4); Mean Corpuscular Hemoglobin 33.2 pg (27.0-31.2); Mean Corpuscular Volume 94.2 fl (80-94); Mean Platelet Volume 10.4 fl (7.4-10.4); Monocytes # 0.6 K/mm3 (0.1-1.0); Monocytes % 5.6 % (1.7-9.3); Neutrophils # 10.1 K/mm3 (1.8-7.8); Neutrophils % 90.6 % (37.0-80.0); Red Blood Count 4.12 M/mm3 (4.60-6.20); Red Cell Distribution Width 14.4 % (11.5-17.5); White Blood Count 11.1 K/mm3 (4.8-10.8)
[2023-07-01 06:00] LABS: Lactic Acid 1.4 mmol/L (0.7-2.1)
[2023-07-01 06:01] LABS: Alanine Aminotransferase 35 U/L (12-78); Albumin Level 3.7 g/dl (3.5-5.0); Alkaline Phosphatase 104 U/L (38-126); Anion Gap 13.6 mEq/L (5-15); Aspartate Amino Transferase 41 U/L (17-59); Bilirubin,Total 2.6 mg/dl (0.2-1.3); Blood Urea Nitrogen 56 mg/dl (9-20); Calcium 8.4 mg/dl (8.4-10.2); Carbon Dioxide 21 mmol/L (22.0-30.0); Chloride 100 mmol/L (98-107); Creatinine Clearance Estimated 26 mL/min (50-200); Estimated Glomerular Filt Rate 24 ml/min (>60); GFR (African American) 29 ML/MIN (>60); Globulin 3.6 g/dL (1.3-3.2); Glucose 161 mg/dl (74-100); Potassium 3.6 mmoL/L (3.5-5.1); Sodium 131 mmol/L (136-145); Total Protein,Serum 7.3 g/dl (6.3-8.2)
[2023-07-01 06:02] LABS: Activated Partial Thrombo Time 40.9 seconds (22.8-30.6); INR 1.25 (0.9-1.1); Prothrombin Time 13.3 seconds (10.1-12.5)
[2023-07-01 06:05] LABS: VBG Base Excess -3.4 mmol/L (-2.4-2.3); VBG HCO3 21.1 mmol/L (23-30); VBG Oxygen Saturation 97.9 % (50-70); VBG PCO2 33.8 mmol/L (35-51); VBG PH 7.41 mmol/L (7.31-7.41); VBG PO2 108.3 mmol/L (28-40); VBG Total CO2 22.2 mmol/L (23-27)
[2023-07-01 06:13] LABS: Troponin I 0.03 ng/ml (0.00-0.034)
[2023-07-01 06:14] LABS: Platelet Count 48 K/mm3 (142-424)
--- NOTE | 2023-07-01 06:14 | HMH.EDGENADL ---
Discharge Plan Disposition Patient Disposition: Admitted Condition: Good Prescriptions Prescriptions: No Action lisinopril 5 MG tablet 40 mg PO DAILY carvedilol 25 mg Tablet 25 mg PO BID Rx Instructions: must administer with a meal/food amlodipine 5 mg Tablet 5 mg PO DAILY aspirin 81 mg Tablet,Delayed Release (Dr/Ec) 81 mg PO DAILY hydralazine 50 mg Tablet 50 mg PO TID Xarelto 15 mg Tablet 15 mg PO DAILY levothyroxine 50 mcg/mL Solution 50 mcg PO DAILY pantoprazole [Protonix] 40 mg tablet,delayed release (DR/EC) 40 mg PO DAILY Qty: 90 3RF Rx Instructions: May substitute Referrals Follow up/Referrals: Provider,Referral, MD [Referring] - See instructions Clinical Impressions Clinical Impression: Pneumonia, Acute hypoxemic respiratory failure, Elevated brain natriuretic peptide (BNP) level, Acute kidney injury superimposed on CKD, Thrombocytopenia Discharge ED Provider: Trixie Cox General Adult HPI General Chief complaint: Shortness of Breath/Dyspnea Stated complaint: Short of Breath Time Seen by Provider: 07/01/23 05:33 Mode of Arrival: EMS Source of Information: Patient Limitations: No Limitations Description of Symptoms (Recalled from ER Triage Doc. by RN): Pt reports incease in SOA and cough since last night, reports thick productive cough History of Present Illness HPI narrative: This patient is a 73-year-old male with a history of CVA, [place], recent change from Eliquis to Xarelto, COPD not on home oxygen, hypertension, hypothyroidism, hyperlipidemia, and pacemaker in place presented to the emergency department for evaluation with concern for shortness of breath. Patient reports that for the last several days, he has been feeling unwell. He has had productive cough and has been generally weak. He also notes shortness of breath, but he denies any chest pain. He called EMS today for worsening shortness of breath. EMS notes that he had trouble breathing upon ambulation to the stretcher, so they immediately started a DuoNeb. Vitals were stable per EMS. Of note, patient states that he just recently changed from Eliquis to Xarelto. He notes that he takes this for heart issues. Related Data Home Medications Medication Instructions Recorded Confirmed lisinopril 5 mg tablet 40 mg PO DAILY High blood pressure 08/31/17 07/01/23 amlodipine 5 mg tablet 5 mg PO DAILY 06/13/23 07/01/23 aspirin 81 mg tablet,delayed 81 mg PO DAILY 06/13/23 07/01/23 release carvedilol 25 mg tablet 25 mg PO BID 06/13/23 07/01/23 hydralazine 50 mg tablet 50 mg PO TID 06/13/23 07/01/23 levothyroxine 50 mcg/mL oral 50 mcg PO DAILY 06/13/23 07/01/23 solution rivaroxaban 15 mg tablet (Xarelto) 15 mg PO DAILY 06/13/23 07/01/23 Previous Rx's Medication Instructions Recorded pantoprazole 40 mg tablet,delayed 40 mg PO DAILY #90 tabs 06/14/23 release (Protonix) Allergies Allergy/AdvReac Type Severity Reaction Status Date / Time No Known Allergies Allergy Verified 06/14/23 11:48 [facility] Disclaimer: The information contained in this section may have been updated after the patient was seen, as this information can be updated by other users. Medical History Acid reflux COPD (chronic obstructive pulmonary disease) History of myocardial infarction History of stroke Hypertension Surgical History History of permanent cardiac pacemaker placement Family History Other No significant family history Social History Smoking Status: Current every day smoker tobacco type: cigarettes packs per day: 1 alcohol intake: former substance use type: denies use current occupational status: unemployed and retired Travel in the last 8 weeks: None h
--- NOTE | 2023-07-01 06:14 | PC.NURSE ---
Gail called from the lab. Critical lab value for the pt. Platelet level is 48. RN and advised. CR
[2023-07-01 06:15] LABS: MANUAL DIFFERENTIAL MANUAL DIFFERENTIAL (MANUAL DIFF)
[2023-07-01 06:18] LABS: T4 (Thyroxine) 7.3 ug/dl (5.53-11.0)
[2023-07-01 06:28] LABS: Lymphocytes % 3 % (10-50); Macrocytosis 1+; Monocytes % 6 % (2-9); Neutrophils % 91 % (42-76); Platelet Estimate Marked Decrease; Total Cells Counted 100
[2023-07-01 06:32] LABS: Thyroid Stimulating Hormone 1.02 uIU/mL (0.465-4.68)
[2023-07-01 06:36] LABS: NT Pro Brain Natriuretic Pep. 7540 pg/mL (0-125)
--- NOTE | 2023-07-01 06:38 | PC.NURSE ---
Pts O2 sat down to 86% on RA, provider aware pt placed on 2L/NC
--- NOTE | 2023-07-01 07:00 | PC.NURSE ---
RT at BS
--- NOTE | 2023-07-01 07:13 | PC.NURSE ---
Report from AMINTA Winn
--- NOTE | 2023-07-01 07:28 | PC.NURSE ---
Notified Case Management for bed assignment. Pt will be admitted for Respiratory Failure with new O2 use, Pneumonia, and JV. Admitted to Hospitalist
--- NOTE | 2023-07-01 08:24 | PC.NURSE ---
Report to Uday Grey RN; Awaiting transport to arrive
--- NOTE | 2023-07-01 08:31 | PC.NURSE ---
Staff from 2nd floor to collect pt Med Surg
--- NOTE | 2023-07-01 08:40 | PC.NURSE ---
arrived to floor by w/c from ED
--- NOTE | 2023-07-01 08:50 | PC.NURSE ---
courtesy tech note: nurse notified of patient's BP
[2023-07-01 09:36] LABS: Troponin I 0.03 ng/ml (0.00-0.034)
--- NOTE | 2023-07-01 10:09 | EXP.PULM.CON ---
History of Present Illness History of present illness: Mr. Connors is a 73-year-old male with reported history of CAD, COPD, hypertension, CHF presented to hospital with worsening cough respiratory symptoms generalized weakness. Patient admits COPD on inhaler therapy at home but not using any oxygen. Admits proximal worsening respiratory distress and worsening cough and productive phlegm for the last 3 to 4 days. [facility] Disclaimer: The information contained in this section may have been updated after the patient was seen, as this information can be updated by other users. Medical History (Updated 07/01/23 @ 10:48 by Justin Quispe MD) Acid reflux Acute respiratory failure with hypoxia COPD (chronic obstructive pulmonary disease) COPD exacerbation History of myocardial infarction History of stroke Hypertension Surgical History History of permanent cardiac pacemaker placement Family History Other No significant family history Social History (Updated 07/01/23 @ 09:12 by Rakel Jade RN) Smoking Status: Current every day smoker tobacco type: cigarettes packs per day: 1 alcohol intake: former substance use type: denies use current occupational status: unemployed and retired Travel in the last 8 weeks: None household members: none housing: house current occupational exposures/hazards: No caffeine: Yes Review of Systems Constitutional Constitutional: Reports anorexia, Reports body ache(s) and Reports fatigue Eyes Eyes: Denies eye discharge, Denies dry eyes, Denies irritation and Denies itchy eyes ENT Ears, Nose, Mouth, and Throat: Denies epistaxis, Denies facial pain, Denies lip swelling and Denies throat swelling *Cardiovascular Cardiovascular: Reports dyspnea and Reports dyspnea on exertion *Respiratory Respiratory: Denies change in phlegm color, Reports chest congestion, Reports cough, Reports dyspnea, Reports dyspnea on exertion, Reports excessive phlegm production and Reports wheezing *Gastrointestinal Gastrointestinal: Denies abdominal pain, Denies belching and Denies cramping *Musculoskeletal Musculoskeletal: Reports back pain, Reports myalgias and Reports other (No small joint swelling or Pain) Psychiatric Psychiatric: Denies homicidal ideation and Denies suicidal ideation Endocrine Endocrine: Reports fatigue and Denies heat intolerance Hematologic/Lymphatic Hematologic/Lymphatic: Denies easy bleeding and Denies lymphadenopathy Allergic/Immunologic Allergic/Immunologic: Denies itchy eyes, Denies lip swelling, Denies throat swelling and Reports wheezing Pulmonology Exam Inpatient Vital signs and Labs for Last 24 Hours: Temp Pulse Resp BP Pulse Ox O2 Del Method O2 Flow Rate 97.8 F 78 18 93/56 L 97 Nasal Cannula 2 07/01/23 08:48 07/01/23 08:48 07/01/23 08:48 07/01/23 08:48 07/01/23 09:43 07/01/23 09:58 07/01/23 09:58 Laboratory Results - last 24 hr 07/01/23 05:34: NT-Pro-B Natriuret Pep 7540 H 07/01/23 05:36: WBC 11.1 H, RBC 4.12 L, Hgb 13.7 L, Hct 38.8 L, MCV 94.2 H, MCH 33.2 H, MCHC 35.3, RDW 14.4, Plt Count 48 L*, MPV 10.4, Neut % (Auto) 90.6 H, Lymph % (Auto) 3.6 L, [place] % (Auto) 5.6, Eos % (Auto) 0.1, Baso % (Auto) 0.0 L, Neut # (Auto) 10.1 H, Lymph # (Auto) 0.4 L, [place] # (Auto) 0.6, Eos # (Auto) 0.0, Baso # (Auto) 0.0, Total Counted 100, Neutrophils % (Manual) 91 H, Lymphocytes % (Manual) 3 L, Monocytes % (Manual) 6, Platelet Estimate Marked decrease, Macrocytosis 1+, PT 13.3 H, INR 1.25 H, APTT 40.9 H, Sodium 131 L, Potassium 3.6, Chloride 100, Carbon Dioxide 21 L, Anion Gap 13.6, BUN 56 H, Creatinine 2.60 H, Estimated Creat Clear 26, Estimated GFR 24 L, Est GFR ( Amer) 29 L, Glucose 161 H, Lactate 1.4, Calcium 8.4, Total Bilirubin 2.6 H, AST 41, ALT 35, Alkaline Phosphatase 104, Troponin I 0.03, Total Protein 7.3, Albumin 3.7, Globulin 3.6 H, Albumin/Globulin
[2023-07-01 12:52] LABS: Troponin I 0.02 ng/ml (0.00-0.034)
--- NOTE | 2023-07-01 18:18 | EXP.HP ---
History of Present Illness *Admission Date: 07/01/23 *Reason for visit:: sob *History of present illness: Patient is a 73-year-old male with past medical history of COPD, active tobacco use, hypertension CAD who presents to the hospital due to shortness of breath. According to patient he has been having cough not producing much phlegm. Patient mentions he is actively smoking.. He used inhalers without much relief. [facility] Disclaimer: The information contained in this section may have been updated after the patient was seen, as this information can be updated by other users. Medical History (Updated 07/01/23 @ 10:48 by Justin Quispe MD) Acid reflux Acute respiratory failure with hypoxia COPD (chronic obstructive pulmonary disease) COPD exacerbation History of myocardial infarction History of stroke Hypertension Surgical History History of permanent cardiac pacemaker placement Family History Other No significant family history Social History (Updated 07/01/23 @ 09:12 by Rakel Jade RN) Smoking Status: Current every day smoker tobacco type: cigarettes packs per day: 1 alcohol intake: former substance use type: denies use current occupational status: unemployed and retired Travel in the last 8 weeks: None household members: none housing: house current occupational exposures/hazards: No caffeine: Yes Review of Systems Review of Systems Review of systems:: pertinent systems reviewed and negative unless documented below Meds Home Medications and Allergies Home Medications Medication Instructions Recorded Confirmed Type amlodipine 5 mg tablet 5 mg PO DAILY 06/13/23 07/01/23 History aspirin 81 mg tablet,delayed 81 mg PO DAILY 06/13/23 07/01/23 History release carvedilol 25 mg tablet 25 mg PO BID 06/13/23 07/01/23 History hydralazine 50 mg tablet 50 mg PO BID 06/13/23 07/01/23 History rivaroxaban 15 mg tablet (Xarelto) 15 mg PO DAILY 06/13/23 07/01/23 History pantoprazole 40 mg tablet,delayed 40 mg PO DAILY #90 tabs 06/14/23 07/01/23 Rx release (Protonix) levothyroxine 50 mcg tablet 50 mcg PO DAILY 07/01/23 07/01/23 History lisinopril 40 mg tablet 40 mg PO DAILY 07/01/23 07/01/23 History pravastatin 40 mg tablet 40 mg PO HS 07/01/23 07/01/23 History New Prescriptions to Start Prescriptions: Allergies Allergy/AdvReac Type Severity Reaction Status Date / Time No Known Allergies Allergy Verified 07/01/23 09:00 Exam Data for Last 24 hours Vital signs and Labs for Last 24 Hours: Temp Pulse Resp BP Pulse Ox O2 Del Method O2 Flow Rate 97.6 F 67 14 125/68 95 Nasal Cannula 2 07/01/23 16:00 07/01/23 16:00 07/01/23 16:00 07/01/23 16:00 07/01/23 16:00 07/01/23 17:48 07/01/23 17:48 Laboratory Results - last 24 hr 07/01/23 05:34: NT-Pro-B Natriuret Pep 7540 H 07/01/23 05:36: WBC 11.1 H, RBC 4.12 L, Hgb 13.7 L, Hct 38.8 L, MCV 94.2 H, MCH 33.2 H, MCHC 35.3, RDW 14.4, Plt Count 48 L*, MPV 10.4, Neut % (Auto) 90.6 H, Lymph % (Auto) 3.6 L, [place] % (Auto) 5.6, Eos % (Auto) 0.1, Baso % (Auto) 0.0 L, Neut # (Auto) 10.1 H, Lymph # (Auto) 0.4 L, [place] # (Auto) 0.6, Eos # (Auto) 0.0, Baso # (Auto) 0.0, Total Counted 100, Neutrophils % (Manual) 91 H, Lymphocytes % (Manual) 3 L, Monocytes % (Manual) 6, Platelet Estimate Marked decrease, Macrocytosis 1+, PT 13.3 H, INR 1.25 H, APTT 40.9 H, Sodium 131 L, Potassium 3.6, Chloride 100, Carbon Dioxide 21 L, Anion Gap 13.6, BUN 56 H, Creatinine 2.60 H, Estimated Creat Clear 26, Estimated GFR 24 L, Est GFR ( Amer) 29 L, Glucose 161 H, Lactate 1.4, Calcium 8.4, Total Bilirubin 2.6 H, AST 41, ALT 35, Alkaline Phosphatase 104, Troponin I 0.03, Total Protein 7.3, Albumin 3.7, Globulin 3.6 H, Albumin/Globulin Ratio 1.0 L, Procalcitonin 14.0 H, TSH 1.02, Thyroxine (T4) 7.3, SARS-CoV-2 (PCR) Not detected, Influenza A Un
[2023-07-02] VITALS (8 sets, daily range): BP systolic 90–194; BP diastolic 54–63; PULSE 60–88; RESP 18–19; TEMP 36.6–37; O2SAT 86–97; BMI 19.6
[2023-07-02 07:43] LABS: Eosinophils % 0.2 % (0.1-12.0); Hematocrit 36.8 % (42.0-52.0); Hemoglobin 12.4 g/dL (14.1-18.0); Lymphocytes # 0.7 K/mm3 (0.7-4.5); Lymphocytes % 6.4 % (10-50); Mean Corpuscular HGB Conc 33.7 g/dL (31.8-35.4); Mean Corpuscular Hemoglobin 32.5 pg (27.0-31.2); Mean Corpuscular Volume 96.3 fl (80-94); Mean Platelet Volume 12.7 fl (7.4-10.4); Monocytes # 0.8 K/mm3 (0.1-1.0); Monocytes % 7.6 % (1.7-9.3); Neutrophils # 8.9 K/mm3 (1.8-7.8); Neutrophils % 85.7 % (37.0-80.0); Red Blood Count 3.82 M/mm3 (4.60-6.20); Red Cell Distribution Width 14.7 % (11.5-17.5); White Blood Count 10.4 K/mm3 (4.8-10.8)
[2023-07-02 08:04] LABS: Anion Gap 16.6 mEq/L (5-15); Blood Urea Nitrogen 69 mg/dl (9-20); Calcium 7.7 mg/dl (8.4-10.2); Carbon Dioxide 18 mmol/L (22.0-30.0); Chloride 104 mmol/L (98-107); Creatinine Clearance Estimated 29 mL/min (50-200); Estimated Glomerular Filt Rate 28 ml/min (>60); GFR (African American) 34 ML/MIN (>60); Glucose 135 mg/dl (74-100); Potassium 3.6 mmoL/L (3.5-5.1); Sodium 135 mmol/L (136-145)
[2023-07-02 08:09] LABS: MANUAL DIFFERENTIAL MANUAL DIFFERENTIAL (MANUAL DIFF); Platelet Count 34 K/mm3 (142-424)
--- NOTE | 2023-07-02 10:22 | XR_ITS ---
PROCEDURE INFORMATION: Exam: XR Right Shoulder Exam date and time: 07/02/2023 10:27 AM Age: 73 years old Clinical indication: Pain; Shoulder; Right; Additional info: Shoulder pain TECHNIQUE: Imaging protocol: Radiologic exam of the right shoulder. Views: 1 view. COMPARISON: CR XR CHEST PORTABLE 07/01/2023 5:52 AM FINDINGS: Bones/joints: Normal. Soft tissues: Normal. IMPRESSION: No acute findings.
[2023-07-02 10:42] LABS: Lymphocytes % 8 % (10-50); Monocytes % 6 % (2-9); Neutrophils % 86 % (42-76); Total Cells Counted 100
[2023-07-02 10:43] LABS: Platelet Estimate Marked Decrease; RBC Morphology Normal
--- NOTE | 2023-07-02 15:41 | EXP.PN ---
Subjective *Date: 07/02/23 *Time: 15:41 Interval history: Patient was seen and evaluated at the bedside. denies chest pain, shortness of breath, nausea, vomiting, abdominal pain. Patient does not have any complaints at this time. feels better overall. Complains of R shoulder pain while moving Exam Data for Last 24 hours Vital signs and Labs for Last 24 Hours: Temp Pulse Resp BP Pulse Ox O2 Del Method O2 Flow Rate 97.9 F 65 19 90/54 L 97 Nasal Cannula 2 07/02/23 08:00 07/02/23 11:58 07/02/23 11:58 07/02/23 11:58 07/02/23 11:58 07/02/23 13:00 07/02/23 13:00 Laboratory Results - last 24 hr 07/02/23 06:45: WBC 10.4, RBC 3.82 L, Hgb 12.4 L, Hct 36.8 L, MCV 96.3 H, MCH 32.5 H, MCHC 33.7, RDW 14.7, Plt Count 34 L* D, MPV 12.7 H, Neut % (Auto) 85.7 H, Lymph % (Auto) 6.4 L, [place] % (Auto) 7.6, Eos % (Auto) 0.2, Baso % (Auto) 0.0 L, Neut # (Auto) 8.9 H, Lymph # (Auto) 0.7, [place] # (Auto) 0.8, Eos # (Auto) 0.0, Baso # (Auto) 0.0, Total Counted 100, Neutrophils % (Manual) 86 H, Lymphocytes % (Manual) 8 L, Monocytes % (Manual) 6, Platelet Estimate Marked decrease, RBC Morphology Normal, Sodium 135 L, Potassium 3.6, Chloride 104, Carbon Dioxide 18 L, Anion Gap 16.6 H, BUN 69 H, Creatinine 2.30 H, Estimated Creat Clear 29, Estimated GFR 28 L, Est GFR ( Amer) 34 L, Glucose 135 H, Calcium 7.7 L I & O for Last 24 hours: Intake & Output 06/29/23 06/30/23 07/01/23 07/02/23 23:59 23:59 23:59 23:59 Intake Total 1150 / 1150 1780 / 1780 Output Total 725 / 725 500 / 500 Balance 425 / 425 1280 / 1280 Weight 73.17 kg 73.18 kg Constitutional Constitutional: no acute distress *Routine HEENT Exam Head: Present normocephalic Eye: Present EOMI and PERRL ENT: Present mucous membranes moist *Routine Neck Exam Neck: Present supple; Absent lymphadenopathy *Routine Respiratory Exam Respiratory: Present diminished air movement *Routine Cardiovascular Exam Cardiovascular: Present RRR *Routine Abdominal Exam Abdominal: Present soft and normoactive bowel sounds; Absent tenderness *Routine Extremities Exam Extremities: Absent cyanosis, clubbing or edema *Routine Skin Exam Skin: Present warm; Absent rash *Routine Neurological Exam Neurological: Present alert and oriented X3 Assessment and Plan *Assessment and plan (1) COPD exacerbation: Status: Acute Category: Medical Code(s): J44.1 - Chronic obstructive pulmonary disease with (acute) exacerbation (2) Acute respiratory failure with hypoxia: Status: Acute Category: Medical Code(s): J96.01 - Acute respiratory failure with hypoxia (3) Pneumonia: Status: Acute Category: Medical Code(s): J18.9 - Pneumonia, unspecified organism (4) Thrombocytopenia: Status: Acute Category: Medical Code(s): D69.6 - Thrombocytopenia, unspecified Plan Patient is a 73-year-old male with past medical history of COPD, active tobacco use, hypertension CAD who presents to the hospital due to shortness of breath. According to patient he has been having cough not producing much phlegm. Patient mentions he is actively smoking.. He used inhalers without much relief. Assessment COPD exacerbation Acute hypoxic respiratory failure satting less than 90% on room air Thrombocytopenia Coagulopathy CAD Hypertension CHF Tobacco dependence Plan Started on azithromycin, Rocephin, elevated procalcitonin concerning for infectious pulmonary process Started on prednisone Influenza checked-negative COVID checked-negative Platelate count worsening DVT prophylaxis- XARELTO ON HOLD
--- NOTE | 2023-07-02 18:34 | PC.NURSE ---
pts saturation was 86% on room air at rest
--- NOTE | 2023-07-02 18:38 | PC.NURSE ---
pt has rested on and off through out the shift. I attempted to wean down his oxygen but pt was 86% on RA. he has complained of shoulder pain which was improved by prn medication. pt did not want to get up to the chair today because he reports feeling too weak. I sent down a sputum sample. he is continent, urine is dark but improving. requires assistance with repositioning .
[2023-07-03] VITALS: BP 99/65; PULSE 57; RESP 18; O2SAT 99
--- NOTE | 2023-07-03 02:04 | PC.NURSE ---
starting to wean Pt's O2. Pt started the shift on 2L and sating at 97% and later at 99%. lowered to 1L and saturations remained 99%. Pt is currently on no O2 and is sating at 95%. Pt has C/O right shoulder pain this shift and has been give pain meds for relief. Pt denies other needs at this time.
[2023-07-03 04:00] VITALS: BP 96/62; PULSE 57; RESP 18; TEMP 36.6; O2SAT 96; BMI 20.1
[2023-07-03 06:38] VITALS: O2SAT 91
[2023-07-03 07:41] LABS: Hematocrit 36.6 % (42.0-52.0); Hemoglobin 12.4 g/dL (14.1-18.0); Lymphocytes # 0.7 K/mm3 (0.7-4.5); Lymphocytes % 5.3 % (10-50); Mean Corpuscular Hemoglobin 32.4 pg (27.0-31.2); Mean Corpuscular Volume 95.2 fl (80-94); Mean Platelet Volume 12.6 fl (7.4-10.4); Monocytes # 0.9 K/mm3 (0.1-1.0); Monocytes % 6.5 % (1.7-9.3); Neutrophils # 11.9 K/mm3 (1.8-7.8); Neutrophils % 88.1 % (37.0-80.0); Red Blood Count 3.84 M/mm3 (4.60-6.20); Red Cell Distribution Width 14.9 % (11.5-17.5); White Blood Count 13.5 K/mm3 (4.8-10.8)
[2023-07-03 07:43] LABS: Platelet Count 41 K/mm3 (142-424)
[2023-07-03 07:44] LABS: MANUAL DIFFERENTIAL MANUAL DIFFERENTIAL (MANUAL DIFF)
[2023-07-03 07:47] LABS: Blood Urea Nitrogen 71 mg/dl (9-20); Calcium 7.5 mg/dl (8.4-10.2); Carbon Dioxide 22 mmol/L (22.0-30.0); Chloride 105 mmol/L (98-107); Creatinine Clearance Estimated 33 mL/min (50-200); Estimated Glomerular Filt Rate 31 ml/min (>60); GFR (African American) 38 ML/MIN (>60); Glucose 104 mg/dl (74-100); Sodium 138 mmol/L (136-145)
[2023-07-03 07:54] LABS: Lymphocytes % 5 % (10-50); Monocytes % 5 % (2-9); Neutrophils % 90 % (42-76); Platelet Estimate Marked Decrease; RBC Morphology Normal; Total Cells Counted 100
[2023-07-03 08:00] VITALS: BP 109/54; PULSE 57; RESP 20; TEMP 36.8; O2SAT 98
[2023-07-03 08:04] LABS: Anion Gap 14.4 mEq/L (5-15); Potassium 3.4 mmoL/L (3.5-5.1)
--- NOTE | 2023-07-03 13:13 | HMH.PTEV ---
Physical Therapy Evaluation Rehab PT IP Evaluation Start: 07/02/23 18:41 Freq: .once Status: Active Protocol: Document 07/03/23 13:05 ULISES (Rec: 07/03/23 13:13 ULISES [id number]) Subjective/History History History Patient is a 73 year old male admitted to [facility] 07/01/23 secondary to respiratory failure/pneumonia. Patient visited ED with concerns of SOA and general weakness. Patient lives in an apartment alone with no steps to negotiate per patient report. He reports he is ambulatory without need of AD at baseline . Patient reports independence with ADL's. I have a cleaning lady that does all of the heavy cleaning, but I can look after myself. Subjective Subjective I'm feeling much better. Patient reports that he would like to have home health after discharge. New diagnosis of cancer in past 12 No months? Rehab PT IP Eval Objective Appearance Patient Behavior Appropriate,Cooperative Patient Orientation Person,Place,Birthday Difficulty following instructions none Speech Pattern Clear,Appropriate Ambulation Patient Able to Ambulate Yes Ambulation Observation IP General Gait Pattern Observation No Deviations/Normal Ambulation Distance (feet) 100 Ambulation Assistive Device None Ambulation Ability Contact Guard/Hand Hold Balance Ability to Arise Able, uses arms to help Sitting Balance Steady, safe Standing Balance Narrow stance w/o support Dynamic Sitting Balance Ability Normal Dynamic Standing Balance Ability Normal Transfers Sit to Stand Chair Transfer Ability Contact Guard/Hand Hold Pain Right Shoulder Pain Intensity 8 ROM All Extremities PT ROM Status WFL MMT All Extremities PT MMT WFL Rehab PT IP prob,goals,plan Problems Date of Evaluation: 07/03/23 Discharge Plan PT Discharge Plan PT suggests that patient is good to discharge home once found medically stable by MD. Patient would benefit from having home health PT to continue to improve
[2023-07-03 13:20] VITALS: PULSE 88; O2SAT 94
--- NOTE | 2023-07-03 14:10 | EXP.DC.SUM ---
General Admission date:: 07/01/23 Discharge date: 07/03/23 HPI HPI HPI: Patient is a 73-year-old male with past medical history of COPD, active tobacco use, hypertension CAD who presents to the hospital due to shortness of breath. According to patient he has been having cough not producing much phlegm. Patient mentions he is actively smoking.. He used inhalers without much relief. Hospital Course Hospital Course Hospital Course: Patient was seen and evaluated at the bedside on the day of discharge. Patient is stable for discharge. Patient wishes to be discharged. All patient questions were answered and patient was given time to ask questions. Patient was discharged in stable condition. Patient is a 73-year-old male with past medical history of COPD, active tobacco use, hypertension CAD who presents to the hospital due to shortness of breath. According to patient he has been having cough not producing much phlegm. Patient mentions he is actively smoking.. He used inhalers without much relief. Assessment COPD exacerbation - improved Acute hypoxic respiratory failure satting less than 90% on room air - imrpved, now on RA, no c/o SOB Thrombocytopenia - stable, f/u as OP, hold ASA, xarelto at hi, f/u with oncology,, referral given, patient verbalizes that he will f/u with PCP Coagulopathy CAD Hypertension CHF Tobacco dependence Exam Data for Last 24 hours Vital signs and Labs for Last 24 Hours: Temp Pulse Resp BP Pulse Ox O2 Del Method O2 Flow Rate 98.2 F 88 20 109/54 L 94 L Room Air 1 07/03/23 08:00 07/03/23 13:20 07/03/23 08:00 07/03/23 08:00 07/03/23 13:20 07/03/23 13:20 07/03/23 00:00 Laboratory Results - last 24 hr 07/03/23 06:40: WBC 13.5 H D, RBC 3.84 L, Hgb 12.4 L, Hct 36.6 L, MCV 95.2 H, MCH 32.4 H, MCHC 34.0, RDW 14.9, Plt Count 41 L*, MPV 12.6 H, Neut % (Auto) 88.1 H, Lymph % (Auto) 5.3 L, [place] % (Auto) 6.5, Eos % (Auto) 0.0 L, Baso % (Auto) 0.0 L, Neut # (Auto) 11.9 H, Lymph # (Auto) 0.7, [place] # (Auto) 0.9, Eos # (Auto) 0.0, Baso # (Auto) 0.0, Total Counted 100, Neutrophils % (Manual) 90 H, Lymphocytes % (Manual) 5 L, Monocytes % (Manual) 5, Platelet Estimate Marked decrease, RBC Morphology Normal, Sodium 138, Potassium 3.4 L, Chloride 105, Carbon Dioxide 22, Anion Gap 14.4, BUN 71 H, Creatinine 2.10 H, Estimated Creat Clear 33, Estimated GFR 31 L, Est GFR ( Amer) 38 L, Glucose 104 H D, Calcium 7.5 L I & O for Last 24 hours: Intake & Output 06/30/23 07/01/23 07/02/23 07/03/23 23:59 23:59 23:59 23:59 Intake Total 1150 / 1150 2050 / 4416 2786 / 2786 Output Total 725 / 725 1125 / 1225 550 / 550 Balance 425 / 425 925 / 3191 2236 / 2236 Weight 73.17 kg 73.18 kg 75.041 kg Microbiology Reports for the Last 24 Hours: Microbiology 07/01/23 05:55 Blood Blood Culture - Preliminary 07/01/23 05:36 Blood Blood Culture - Preliminary Constitutional Constitutional: no acute distress *Routine HEENT Exam Head: Present normocephalic Eye: Present EOMI and PERRL ENT: Present mucous membranes moist *Routine Neck Exam Neck: Present supple; Absent lymphadenopathy *Routine Respiratory Exam Respiratory: Present CTA bilaterally *Routine Cardiovascular Exam Cardiovascular: Present RRR *Routine Abdominal Exam Abdominal: Present soft and normoactive bowel sounds; Absent tenderness *Routine Extremities Exam Extremities: Absent cyanosis, clubbing or edema *Routine Skin Exam Skin: Present warm; Absent rash *Routine Neurological Exam Neurological: Present alert and oriented X3 Results Data Completed and Pending Labs on day of discharge: Labs from last 24 hours 07/03/23 06:40 WBC 13.5 H D RBC 3.84 L Hgb 12.4 L Hct 36.6 L MCV 95.2 H MCH 32.4 H MCHC 34.0 RDW 14.9 Plt Count 41 L* MPV 12.6 H Neut % (Auto) 88.1 H Lymph % (Auto) 5.3 L [place] % (Auto) 6.5 Eos % (Auto) 0.0 L Baso % (Auto) 0.0 L Neut # (Auto) 11.9 H Lymph # (Auto) 0.7 [place] # (Auto) 0
--- NOTE | 2023-07-04 11:25 | SW/DCPLANNER ---
Addendum entered by Lakisha [place] 07/06/23 08:23: [facility] stated they would reach out to patient to start services. Addendum entered by [facility] 07/05/23 08:50: [facility] is not able to accept this patient. Patient information/order has been faxed to [facility]. Addendum entered by Lakisha [place] 07/04/23 12:32: [facility] is not able to accept this patient due to staffing. Patient information has been faxed to [facility]: patient is agreeable. Original Note: Patient discharged home over the weekend. I received an order for home health services for:pt/ot/home health aide. I called and spoke w/ patient regarding discharge over the weekend and home health services. Patient is agreeable to home health services and prefers to use [facility]. I will follow up w/ [facility] once information/order is reviewed.
== END 2023-07-03 14:33 | disposition home health service (06) | DRG 193 ==
LOC: ER 07:27 → 2ND 08:36
PROVIDERS: Admitting Provider Internal Medicine; Emergency Provider Emergency Medicine; PCP Internal Medicine Adolescent Medicine; Visit Provider Internal Medicine
DX: J18.9 Pneumonia, unspecified organism (principal); J96.01 Acute respiratory failure with hypoxia; J44.1 Chronic obstructive pulmonary disease with (acute) exacerbation; I13.0 Hypertensive heart and chronic kidney disease with heart failure and stage 1 through stage 4 chronic kidney disease, or unspecified chronic kidney disease; J44.0 Chronic obstructive pulmonary disease with (acute) lower respiratory infection; D69.6 Thrombocytopenia, unspecified; N18.9 Chronic kidney disease, unspecified; Z86.73 Personal history of transient ischemic attack (TIA), and cerebral infarction without residual deficits; I25.2 Old myocardial infarction; Z79.01 Long term (current) use of anticoagulants; E78.5 Hyperlipidemia, unspecified; Z95.0 Presence of cardiac pacemaker; F17.210 Nicotine dependence, cigarettes, uncomplicated; I50.9 Heart failure, unspecified; R79.1 Abnormal coagulation profile
CPT/HCPCS: 36415; 71045; 73020; 80048; 80053; 82803; 83605; 83880; 84145; 84436; 84443; 84484; 85007; 85025; 85610; 85730; 87040; 87070; 87205; 87636; 93005; 94640; 97163; 99291; J0456; J0696

== ENCOUNTER → 2023-07-09 10:07 | Outpatient (CLI) | payer MEDICARE, SELFPAY ==
[2023-07-09 10:25] LABS: Basophils % 0.3 % (0.1-2.0); Eosinophils # 0.1 K/mm3 (0.0-0.4); Eosinophils % 0.9 % (0.1-12.0); Hematocrit 35.7 % (42.0-52.0); Lymphocytes # 0.7 K/mm3 (0.7-4.5); Lymphocytes % 7.9 % (10-50); Mean Corpuscular HGB Conc 33.5 g/dL (31.8-35.4); Mean Corpuscular Hemoglobin 32.4 pg (27.0-31.2); Mean Corpuscular Volume 96.7 fl (80-94); Mean Platelet Volume 9.7 fl (7.4-10.4); Monocytes # 0.3 K/mm3 (0.1-1.0); Monocytes % 3.1 % (1.7-9.3); Neutrophils # 7.8 K/mm3 (1.8-7.8); Neutrophils % 87.8 % (37.0-80.0); Platelet Count 100 K/mm3 (142-424); Red Blood Count 3.69 M/mm3 (4.60-6.20); Red Cell Distribution Width 15.4 % (11.5-17.5); White Blood Count 8.9 K/mm3 (4.8-10.8)
[2023-07-09 10:34] LABS: MANUAL DIFFERENTIAL MANUAL DIFFERENTIAL (MANUAL DIFF)
[2023-07-09 10:51] LABS: Lymphocytes % 10 % (10-50); Monocytes % 4 % (2-9); Neutrophils % 86 % (42-76); Total Cells Counted 100
[2023-07-09 10:52] LABS: Platelet Estimate Slight Decrease; RBC Morphology Normal
[2023-07-09 11:46] LABS: Alanine Aminotransferase 39 U/L (12-78); Albumin/Globulin Ratio 0.9 (1.1-1.8); Alkaline Phosphatase 80 U/L (38-126); Anion Gap 10.1 mEq/L (5-15); Aspartate Amino Transferase 23 U/L (17-59); Bilirubin,Total 1.3 mg/dl (0.2-1.3); Blood Urea Nitrogen 31 mg/dl (9-20); Calcium 7.4 mg/dl (8.4-10.2); Carbon Dioxide 22 mmol/L (22.0-30.0); Chloride 105 mmol/L (98-107); Estimated Glomerular Filt Rate 37 ml/min (>60); GFR (African American) 45 ML/MIN (>60); Globulin 3.3 g/dL (1.3-3.2); Glucose 97 mg/dl (74-100); Potassium 4.1 mmoL/L (3.5-5.1); Sodium 133 mmol/L (136-145); Total Protein,Serum 6.3 g/dl (6.3-8.2)
== END ==
PROVIDERS: PCP Internal Medicine Adolescent Medicine; Visit Provider Internal Medicine Adolescent Medicine
DX: D69.6 Thrombocytopenia, unspecified (principal)
CPT/HCPCS: 36415; 80053; 85007; 85025

== ENCOUNTER 2023-09-20 07:45 | Outpatient (CLI) | payer MEDICARE, SELFPAY ==
[2023-09-20 08:40] VITALS: PULSE 74; PULSE 76
[2023-09-20] MEDS: ALBUTEROL 0.083% 2.5 MG/3 ML NEB IH (08:40)
== END 2023-09-20 23:59 ==
LOC: RT 07:45
PROVIDERS: PCP Internal Medicine Adolescent Medicine; Visit Provider Internal Medicine Pulmonary Disease
DX: R06.09 Other forms of dyspnea (principal)
CPT/HCPCS: 94060; 94618; 94640; 94727; 94729